=== PATIENT | female | born 1980 ===

== ENCOUNTER 2020-04-20 05:38 | Day surgery (SDC) | payer OTHER ==
[2020-04-20] MEDS ORDERED: Tylenol #3 PO (10:50)
== END 2020-04-20 15:00 | disposition home or self-care (01) ==
LOC: CIR.AMB 05:38
PROVIDERS: ATTEND Obstetrics & Gynecology
DX: N80.1 Endometriosis of ovary (principal); Z20.828 Contact with and (suspected) exposure to other viral communicable diseases